=== PATIENT | male | born 1995 ===

== ENCOUNTER 2021-03-08 01:20 | Emergency (ER) | payer SELFPAY ==
[2021-03-08 01:26] VITALS: PULSE 60; RESP 19; TEMP 98
--- NOTE | 2021-03-08 02:04 | ED ---
Recheck HPI - General Chief Complaint: Recheck/Abnormal Lab/Rx Stated Complaint: covid swab Source: patient, RN notes reviewed Mode of arrival: ambulatory - History of Present Illness Initial Comments: Patient is a 25-year-old male that presents to the emergency department to get a Covid test to return to [place]. He denied any symptoms at this time. He was otherwise a well-appearing 25 she'll male in no apparent distress or pain. He denied any chest pain first breath headache nausea vomiting diarrhea constipation fever fatigue chills. - Related Data Allergies Allergy/AdvReac Type Severity Reaction Status Date / Time No Known Allergies Allergy Verified 03/08/21 01:26 Review of Systems ROS Statement: Those systems with pertinent positive or pertinent negative responses have been documented in the HPI. ROS Other: All systems not noted in ROS Statement are negative. Past Medical History Past Medical History: No Reported History History of Any Multi-Drug Resistant Organisms: None Reported Past Surgical History: No Surgical Hx Reported Past Psychological History: No Psychological Hx Reported Smoking Status: Never smoker Past Alcohol Use History: None Reported Past Drug Use History: None Reported General Exam General appearance: alert, in no apparent distress Head exam: Present: atraumatic, normocephalic, normal inspection Eye exam: Present: normal appearance, PERRL, EOMI. Absent: scleral icterus, conjunctival injection, periorbital swelling Neck exam: Present: normal inspection Respiratory exam: Present: normal lung sounds bilaterally. Absent: respiratory distress, wheezes, rales, rhonchi, stridor Cardiovascular Exam: Present: regular rate, normal rhythm, normal heart sounds. Absent: systolic murmur, diastolic murmur, rubs, gallop, clicks Extremities exam: Present: normal inspection, full ROM, normal capillary refill. Absent: tenderness, pedal edema, joint swelling, calf tenderness Neurological exam: Present: alert, oriented X3 Psychiatric exam: Present: normal affect, normal mood Skin exam: Present: warm, dry, intact, normal color. Absent: rash Course Vital Signs 03/08/21 01:22 Temperature 98 F Pulse Rate 60 Respiratory 19 Rate O2 Sat by Pulse 98 Oximetry Medical Decision Making - Medical Decision Making 25-year-old male needing a Covid test to get back to [place]. Covid test ordered. Covid test negative. Case discussed with Dr. Holloway, patient discharge home. - Lab Data Lab Results 03/08/21 Range/Units 01:27 Coronavirus (PCR) Not Detected (Not Detectd) Disposition Clinical Impression: Encounter for screening for COVID-19 Disposition: HOME SELF-CARE Condition: Stable Instructions (If sedation given, give patient instructions): Coronavirus Disease 2019 (COVID-19) Additional Instructions: Please return to the Emergency Department if symptoms worsen or any other concerns. Is patient prescribed a controlled substance at d/c from ED?: No Referrals: None,Stated [Primary Care Provider] - 1-2 days Time of Disposition: 02:04
== END 2021-03-08 03:01 | disposition home or self-care (01) ==
LOC: EC 01:20
DX: Z20.822 Contact with and (suspected) exposure to COVID-19 (principal)
CPT/HCPCS: 87635; 99282